=== PATIENT | male | born 1945 | race Caucasian/White ===

== ENCOUNTER 2016-11-30 17:06 | Observation (INO) | payer OTHER, MEDICARE ==
[~2016-11-30] VITALS: Ht 182.9 cm; Wt 97.5 kg
[~2016-11-30 17:06] MED LIST: INDOMETHACIN50 MG PO
[2016-11-30 17:33] LABS: ABSOLUTE BASOPHIL COUNT 0 /CUMM (0.0-0.2); ABSOLUTE EOSINOPHIL COUNT 0.3 /CUMM (0.0-0.7); ABSOLUTE GRANULOCYTE CT 7.6 /CUMM (1.4-6.5); ABSOLUTE LYMPH COUNT 1.1 /CUMM (1.2-3.4); ABSOLUTE MONOCYTE COUNT 0.6 /CUMM (0.10-0.60); BASOPHIL % 0.5 % (0.0-2.0); EOSINOPHIL % 2.8 % (0-5); HEMATOCRIT 45.8 % (42-52); MEAN CORPUSCULAR HGB 31.3 PG (27.0-31.0); MEAN CORPUSCULAR HGB CONC 33.1 G/DL (33.0-37.0); MEAN CORPUSCULAR VOLUME 94.5 FL (80.0-94.0); MEAN PLATELET VOLUME 8.6 FL (7.4-10.4); PLATELET COUNT 212 /CUMM (130-400); RBC DISTRIBUTION WIDTH 12.8 % (11.5-14.5); RED BLOOD CELL CT 4.85 /CUMM (4.70-6.10); WHITE BLOOD CELL COUNT 9.6 /CUMM (4.8-10.8)
--- NOTE | 2016-11-30 17:42 | ED NEURO DEFICIT/STROKE ---
History of Present Illness General Chief Complaint: General Adult Stated Complaint: PT VISION BLURR, AND TALKING NO SENSE Source: patient, family, old records Exam Limitations: no limitations Vital Signs & Intake/Output Vital Signs & Intake/Output Vital Signs Date Time Temp Pulse Resp B/P B/P Pulse O2 O2 Flow FiO2 Mean Ox Delivery Rate 11/30 1818 164/74 11/30 181 Room Air 11/30 1720 97.5 69 18 196/95 100 Room Air Allergies Coded Allergies: NO KNOWN ALLERGIES (01/11/14) Reconcile Medications Indomethacin 50 MG CAPSULE 1 CAP PO TID PRN GOUT PAIN with food Triage Note: C/O HEADACHE SINCE THIS AM, WITH VISION DIFFICULTIES. PER , PT HAD GARBLED SPEECH TODAY AFTER LUNCH. TOOK BABY ASA AT 1415. INDOCIN 2 DOSES. DENIES WEAKNESS, NUMBNESS OR TINGLING. Triage Nurses Notes Reviewed? yes Onset: Abrupt Duration: hour(s): (4), better, resolved prior to arrival Timing: single episode today Severity: mild, moderate Vision Problem? No Glaucoma? No Impaired Ability: difficult to speak HPI: 71-year-old male presents to the ER for evaluation with history of hypertension and high cholesterol and gout with family who states that around 1:00 this afternoon he developed expressive aphasia, blurry vision and the patient stating that he felt like "boggy". Patient's states that he was not making any sense there is no facial droop arm or leg weakness. She attempted to bring into the ER at that time however he went upstairs and took a nap. When he awoke the symptoms were better however she states that he was still acting funny and he is complaining of a generalized 5 out of 10 nonradiating headache. There's been no recent fall or trauma. He took a baby aspirin prior to arrival. His states that he "acts stupid" when he takes indomethacin however he's never had these speech difficulties before her symptoms. The patient does drink alcohol ever denies use in the past 2 days no other drug use. He denies vision changes or any other complaints at this time (BOGDAN PETERS,SAMINA) Past History Travel History Traveled to [place] past 21 day No Medical History Any Pertinent Medical History? see below for history Cardiovascular: hypertension, hyperlipidemia Surgical History Surgical History: non-contributory Psychosocial History What is your primary language Bulgarian Tobacco Use: Quit >30 days ago ETOH Use: occasional use Family History Hx Contributory? No (SAMINA HOOKS) Review of Systems Review of Systems Constitutional: Reports: see HPI. All Other Systems: Reviewed and Negative Comments Review of systems: See HPI, All other systems negative. Constitutional, no chills no fever, no malaise HEENT: No visual changes no sore throat no congestion Cardiovascular: No chest pain , no palpitation Skin: no rashes, no change in skin Respiratory: No dyspnea no cough no sputum GI: No nausea no vomiting, no diarrhea, : No dysuria Muscle skeletal: No joint pain, no joint swelling, no back pain, no neck pain, Neurologic: No numbness confusion, headache Psych: No stress no depression,. Heme/endocrine: No bruising no bleeding Immunology: No lymphadenopathy (SAMINA HOOKS) Physical Exam Physical Exam General Appearance: well developed/nourished, no apparent distress, alert, awake Cranial Nerves: normal hearing, normal speech Comments: Well-developed well-nourished person in no acute distress HEENT: Normal EENT exam; PERRL, EOMI, no nystagmus. HEAD is atraumatic. moist mucous membranes. Neck: Supple,, normal range of motion without pain or tenderness Back: Nontender, no CVA tenderness. Full range of motion Cardiovascular: Regular rate and rhythms no murmurs rubs Respiratory: Chest nontender.There were no bony deformities, no asymmetry. No respiratory distress. Patient speaking in full complete sentences. Breath sounds clear to auscultation bilaterally: NO W/R/R Abdomen: Soft, nontender nondistended, no appreciable organomegaly. Normal bowel sounds. No rebound/guarding, Extremity: No edema, full range of motion of extremities, normal and equal pulses bilaterally, 5 out of 5 strength noted to bilateral upper and lower extremities Neuro: Alert oriented x3, motor sensory normal, cranial nerves II through XII grossly intact. There were no obvious focal neurologic abnormalities. Skin: No appreciable rash on exposed skin, skin is warm and dry. Psych: Mood and affect is normal, memory and judgment is normal. Core Measures CVA/TIA Diagnosis: Yes NIH Stroke Scale: Total 0 Symptom Start Date: 11/30/16 Symptom Start Time: 1330 Severe Sepsis Present: No Septic Shock Present: No Bedside Dysphagia Screen Bedside Swallow Eval Done: Yes Result of Evaluation: Pass (SAMINA HOOKS) Progress Differential Diagnosis: electrolyte imbalance, encephalitis, hypoglycemia, intracranial Hem., intracranial mass/tumor, stroke, subarachnoid Hem., vertebrobasilar insuff. Plan of Care: Orders Procedure Date/time Status Heart Healthy Diet 12/01 B Active Vital Signs 11/30 1957 Active Code Status 11/30 1957 Active Patient Data 11/[address] in observation 12/01 1939 Active Intake & Output 11/30 1820 Active URINE DRUG SCREEN FOR ER ONLY 11/30 1816 Complete URINALYSIS 11/30 175 Complete Add-on Test (ER Only) 11/30 175 Active Telemetry/Manager Meat 11/30 175 Active NIH Stroke Scale 11/30 175 Active FingerStick- Glucose 11/30 175 Active ETHANOL 11/30 1725 Complete TROPONIN LEVEL 11/30 172 Complete COMPREHENSIVE METABOLIC PANEL 11/30 172 Complete CBC WITHOUT DIFFERENTIAL 11/30 172 Complete EKG 11/30 172 Active Laboratory Tests 11/30/16 1835: Urine Opiates Screen 126.00, Methadone Screen < 40, Barbiturate Screen < 60, Ur Phencyclidine Scrn < 6.00, Amphetamines Screen < 100, U Benzodiazepines Scrn < 85, Urine Cocaine Screen < 50, Urine Cannabis Screen < 5.00, Urine Color YEL, Urine Clarity CLEAR, Urine pH 7.0, Ur Specific [place] <= 1.005, Urine Protein NEG, Urine Ketones NEG, Urine Nitrite NEG, Urine Bilirubin NEG, Urine Urobilinogen 0.2, Ur Leukocyte Esterase NEG, Ur Microscopic EXAM NOT REQUIRED, Urine Hemoglobin NEG, Urine Glucose NEG 11/30/16 1725: Anion Gap 13, Estimated GFR > 60, BUN/Creatinine Ratio 16.4, Glucose 124 H, Calcium 9.9, Total Bilirubin 0.8, AST 41, ALT 50, Alkaline Phosphatase 64, Troponin I < 0.01, Total Protein 7.5, Albumin 4.5, Globulin 3.0, Albumin/ Globulin Ratio 1.5, CBC w Diff NO MAN DIFF REQ, RBC 4.85, MCV 94.5 H, MCH 31.3 H, RDW 12.8, MPV 8.6, Gran % 79.0 H, Lymphocytes % 11.8 L, Monocytes % 5.9, Eosinophils % 2.8, Basophils % 0.5, Absolute Granulocytes 7.6 H, Absolute Lymphocytes 1.1 L, Absolute Monocytes 0.6, Absolute Eosinophils 0.3, Absolute Basophils 0, PUBS MCHC 33.1, Serum Alcohol < 10.0 Diagnostic Imaging: Viewed by Me: CT Scan. Discussed w/RAD: CT Scan. Radiology Impression: PATIENT: CLIFFORD WOO PRESENT AGE: 71 PATIENT ACCOUNT NO: [id number] : 46 LOCATION: [facility] ORDERING PHYSICIAN: SAMINA PETERS SERVICE DATE: 11/30/16 EXAM TYPE: CAT - CT HEAD WO IV CONTRAST EXAMINATION: CT HEAD WITHOUT CONTRAST CLINICAL INFORMATION: Headache. Vision changes. COMPARISON: CT head 05/08/2009 TECHNIQUE: Contiguous axial imaging was performed from the skull base to vertex without intravenous administration of contrast. DLP: 600.71 mGy-cm FINDINGS: Stable small lacunar infarct in the head of the caudate on the right unchanged since CAT scan 05/08/2009. There is no evidence of acute intracranial hemorrhage or acute territorial infarction. No abnormal mass effect or midline shift is seen. Swain to white matter differentiation is well preserved. No extra-axial fluid collections are identified. There is atrophy with prominence of the ventricles and the sulci and hypodensity of the periventricular white matter due to chronic small vessel ischemic disease. There is vascular calcifications of the internal carotid arteries bilaterally. The osseous structures and soft tissues are normal. The mastoid air cells and visualized portions of the paranasal sinuses are well aerated. IMPRESSION: No acute intracranial pathology. DICTATED BY: JAYASHREE TIERNEY MD DATE/TIME DICTATED:11/30/161757 COPY DIRECTOR:ELOY DATE/TIME TRANSCRIBED:11/30/161757 CONFIDENTIAL, DO NOT COPY WITHOUT APPROPRIATE AUTHORIZATION. <Electronically signed in Other Vendor System> SIGNED BY: JAYASHREE TIERNEY MD 11/30/16 034 Initial ED EKG: normal intervals, normal p-waves, normal QRS complex, normal sinus rhythm (70) Rhythm Strip: normal sinus rhythm (SAMINA HOOKS) Departure Departure Time of Disposition: 1936 Disposition: STILL A PATIENT Condition: Stable Clinical Impression Primary Impression: TIA (transient ischemic attack) Referrals: CATRACHITO MEJIA,BRIANNA Healy (PCP/Family) Departure Forms: Customer Survey General Discharge Information Observation Note Spoke With: GUERA LOPEZ MD Physician Advisor Notified: BREANA MEJIA,AMBER [address]ney Place Patient In: Non-ED OBS Care Area Rationale for Observation: My rational for observation is as follows neuro checks telemetry monitoring, neurology consult premature discharge and medically harmful (BOGDAN PETERS,SAMINA) PA/MIX HOUSE TENDER Co-Sign Statement Statement: ED Attending supervision documentation- [X] I saw and evaluated the patient. I have also reviewed all the pertinent lab results and diagnostic results. I agree with the findings and the plan of care as documented in the PA's/MIX HOUSE TENDER's documentation. [X] I have reviewed the ED Record and agree with the PA's/MIX HOUSE TENDER's documentation. [] Additions or exceptions (if any) to the PAs/MIX HOUSE TENDER's note and plan are summarized below: [] (LITO MEJIA,CANDELARIO)
--- NOTE | 2016-11-30 18:03 | CT SCAN REPORT ---
EXAMINATION: CT HEAD WITHOUT CONTRAST CLINICAL INFORMATION: Headache. Vision changes. COMPARISON: CT head 05/08/2009 TECHNIQUE: Contiguous axial imaging was performed from the skull base to vertex without intravenous administration of contrast. DLP: 600.71 mGy-cm FINDINGS: Stable small lacunar infarct in the head of the caudate on the right unchanged since CAT scan 05/08/2009. There is no evidence of acute intracranial hemorrhage or acute territorial infarction. No abnormal mass effect or midline shift is seen. Swain to white matter differentiation is well preserved. No extra-axial fluid collections are identified. There is atrophy with prominence of the ventricles and the sulci and hypodensity of the periventricular white matter due to chronic small vessel ischemic disease. There is vascular calcifications of the internal carotid arteries bilaterally. The osseous structures and soft tissues are normal. The mastoid air cells and visualized portions of the paranasal sinuses are well aerated. IMPRESSION: No acute intracranial pathology.
--- NOTE | 2016-11-30 19:57 | History & Physical ---
NAYA MEJIA,[facility] 11/30/161956: General Information and [facility] MD Statement: I have seen and personally examined CLIFFORD WOO and documented this H&P. The patient is a 71 year old M who presented with a patient stated chief complaint of [headache and expressive aphasia]. Source of Information: patient, family Exam Limitations: no limitations History of Present Illness: Mr. Woo is 71 year old male with past medical history significant for hypertension, hyperlipidemia, migraine, gout, carotid artery disease status post CABG (3 vessels), left hearing loss s/p left ear infection and ENT procedure presented to ED with chief complaint of sudden onset of visual changes, headache , expressive aphasia for one day. Patient reported what he was with his family watching TV at around 1:30 PM when he started to have sudden onset of "funny/pressure sensation" headache-like pain , expressive aphasia (couldn't express himself with right words) and visual changes (visual field black spots). Patient took aspirin and multivitamin pill and went to sleep for 1 hour, after he woke up the speech difficulty resolved, visual changes and headache continue to present. His at bedside reported that after the nap she and her daughter had a conversation with him and he couldn't comprehend appropriately and they decided to bring him to ED for evaluation. Review of systems negative for weakness, numbness, fatigue, palpitation, chest pain, shortness of breath, sweating, nausea or vomiting. Patient reported similar episode one year ago when he was working outside in warm weather, he developed expressive aphasia similar to today's symptom and was attributed to dehydration. At that time patient took a shower and went to sleep for 1 hour, after the nap symptoms resolved and didn't seek any medical attention at that time. Patient is an ex-smoker quit 40 years ago, drinks alcohol occasionally but in large amount, last drink was last Monday where he consumed 5-6 beers, he mainly drinks when he works outside to help alleviating his back, knees, muscle pain. Denied ilict drug. Allergies/Medications Allergies: Coded Allergies: NO KNOWN ALLERGIES (01/11/14) Past History Travel History Traveled to [place] past 21 day No Medical History Cardiovascular: hypertension, hyperlipidemia Surgical History Surgical History: CABG Past Family/Social History Psychosocial History Where do you live? Home Who Do You Live With? spouse Smoking Status: Former Smoker ETOH Use: occasional use Illicit Drug Use: denies illicit drug use Review of Systems Review of Systems Constitutional: Reports: see HPI. Denies: fever, malaise. Cardiovascular: Denies: chest pain, orthopena, palpitations. Respiratory: Denies: cough, short of breath. GI: Denies: abdominal pain, constipation, diarrhea, nausea, vomiting. Genitourinary: Denies: dysuria, frequency, hematuria. Musculoskeletal: Denies: joint pain. Skin: Denies: change in skin color, change in hair/nails. Exam & Diagnostic Data Last 24 Hrs of Vital Signs/I&O Vital Signs Date Time Temp Pulse Resp B/P B/P Pulse O2 O2 Flow FiO2 Mean Ox Delivery Rate 12/01 0100 55 158/76 12/01 0024 97.8 55 20 182/76 96 Room Air 11/30 2301 166/78 11/30 2146 56 16 167/66 97 Room Air 11/30 2125 97.8 58 16 180/80 97 Room Air 11/30 1818 164/74 11/30 1812 Room Air 11/30 1720 97.5 69 18 196/95 100 Room Air Intake & Output 12/01 0800 12/01 0000 11/30 1600 Intake Total 1000 Output Total 1525 Balance -525 Intake, IV 1000 Output, Urine 1525 Patient 97.522 kg Weight Weight Reported by Patient Measurement Method Physical Exam General Appearance Alert, Oriented X3, Cooperative, No Acute Distress Skin No Rashes, No Breakdown, No Significant Lesion Skin Temp/Moisture Exam: Warm/Dry Sepsis Skin Exam (color): Normal for Ethnicity HEENT Atraumatic, PERRLA, EOMI, Mucous Membr. moist/pink Neck Supple, No JVD Lymphatic no cervical lymphadenopathy Cardiovascular Regular Rate, Normal S1, Normal S2, No Murmurs Lungs Clear to Auscultation, Normal Air Movement Abdomen Normal Bowel Sounds, Soft, No Tenderness Neurological Normal Gait, Normal Speech, Strength at 5/5 X4 Ext, Normal Tone, Sensation Intact, Cranial Nerves 3-12 NL, Reflexes 2+ Extremities No Clubbing, No Cyanosis, No Edema, Normal Pulses Vascular Normal Pulses Assessment/Plan Assessment: Mr. Woo is 71 year old male with past medical history significant for hypertension, hyperlipidemia, migraine, gout, carotid artery disease status post CABG (3 vessels) presented to ED with chief complaint of sudden onset of visual changes, headache, expressive aphasia for one day. On admission Vital signs temperature 97.5, pulse 69, blood pressure 196/95, respiratory rate 18 on room air saturation 100% Labs WBC 9.6, H&H 15.2/45.8, platelet 212, sodium 135, potassium 4.6, chloride 92, bicarbonate 23, BUN/creatinine 18/1.1, AST within normal, urine negative toxicology, clean UA Imaging CT head FINDINGS: Stable small lacunar infarct in the head of the caudate on the right unchanged since CAT scan 05/08/2009. There is no evidence of acute intracranial hemorrhage or acute territorial infarction. No abnormal mass effect or midline shift is seen. Swain to white matter differentiation is well preserved. No extra-axial fluid collections are identified. There is atrophy with prominence of the ventricles and the sulci and hypodensity of the periventricular white matter due to chronic small vessel ischemic disease. There is vascular calcifications of the internal carotid arteries bilaterally. The osseous structures and soft tissues are normal. The mastoid air cells and visualized portions of the paranasal sinuses are well aerated. IMPRESSION: No acute intracranial pathology. Problem list #TIA #Hypertension #Hyperlipidemia #TIA -Patient presented with history of sudden onset headache, expressive aphasia, visual changes. Past medical history of similar episode 1 year ago that resolved without medical intervention -Will observe patient on telemetry for 24 hours -building admin for any arrhythmia -Carotid ultrasound to rule out atherosclerotic plague and stenosis -Troponin and EKG serial -Neuro check every 4 -Lipid profile and hemoglobin A1c -TSH, free T4 -Vitamin B12 -Neuro consultation -Continue aspirin and high-dose statin (patient reported history of muscle pain related to Cozaar use) #Hypertension -Continue lisinopril 5 mg daily -Continue atenolol 25 mg daily -Wicho Rosa MD is the grounds person, last follow-up was in July 2016, echo was obtained at that time Diet nothing by mouth waiting for swallow evaluation DVT prophylaxis Lovenox Code full Consultation cardiology and neurology As Ranked By This Provider Problem List: 1. TIA (transient ischemic attack) 2. Acute gouty arthritis Core Measures/Miscellaneous Acute Coronary Syndrome ACS Diagnosis: No Cerebrovascular Accident CVA/TIA Diagnosis: Yes Symptom Start Date: 11/30/16 Symptom Start Time: 1330 Bedside Swallow Eval Done: Yes Result of Evaluation: Pass Congestive Heart Failure CHF Diagnosis: No Venous Thromboembolism VTE Risk Factors: Age > 40 [facility] prophylaxis d/t: No contraindications No VTE Pharm Prophylaxis d/t: No contraindications VTE Diagnosis: No VTE Type: NONE VTE Confirmed by (Test): NONE Severe Sepsis Severe Sepsis Present: No Septic Shock Septic Shock Present: No Miscellaneous Documentation Attending Case Discussed With: JESSICA MEJIA,GUERA Primary Care Physician: BRIANNA WINSTON MD Patient sees these Specialists Cardiology, rheumatology, ENT Level of Patient Care: Telemetry SUNNY MELENDEZ 11/30/16 2152: General Information and HPI Allergies/Medications Home Med list Atenolol 25 MG TABLET 1 TAB PO DAILY HTN (Reported) Indomethacin 50 MG CAPSULE 50 MG PO BIDP PRN GOUT PAIN (Reported) Lisinopril 5 MG TABLET 1 TAB PO QAM HTN (Reported) Pantoprazole Sodium 40 MG TABLET.DR 1 TAB PO QAM GERD (Reported) Prednisone 10 MG TABLET 5 MG PO QAM U (Reported) Resident Review Statement Resident Statement: examined this patient, discussed with intern architect, agreed with intern architect Other Findings: Mr. Woo is a 71 yo man with PMHx. of HTN, HLD, GOUT, Migraine, NM s/p CABG at 2011, multiple surgeries to neck, back, rh. knee and B/L eye cataract removal presented to ED with a c/o of headache, difficulty speech and vision changes. Patient report that today at afternoon he thought he had migraine because he felt his head is funny, whith some wavy vision changes. he also also having speech changes in the form that he knowes what he want to say but it wasn't coming out ok, he went to sleep and when he woke up he felt that his speech was totally fine, but still has the headach and spotty vision, his family noticed that he is confused, not interacting well with them. Patient had similar episode about 1 year ago at that time it was attributed to dehydration but he never seek medical advise. Patient last seen by his grounds person at july last year, at the time he had an echo done. At ED his vitals was stable except that his BP:196/[address]-Heas: unremarkable Assessment: #TIA #Hx. of heart attack S/P tripple bypass at 2011 #Hx. of HTN, HLD #Hx. of Gout #Hx. of Migraine Plan: -Will admitt to telemetry floor -Will start him on dual antiplatelate therapy, plavix and aspirin -Nigel start him on high dose statin ...> 80mg lipitor -Lipid panel at am -Case was discussed with oncall neurologist , who recommend to obtain MRI , and ESR. Patient to be seen by tomorrow -Will place a cardiology consult with Dr. Rosa -Will order another set of troponin and EKG -Echocardiogram -US was ordered, will f/u the result -Case was discussed with at this point there is no need to allow permissive action of BP as it's TIA most likely, not a stroke, as his BP was high, HOWEVER, his BP improved to 158/72, and pulse of 55, so we held BP medication. Will monitor -Will continue home meds except indomethicine and crestor -Heart healthy diet -DVT ppx: Lovenox -Full code JESSICA MEJIA, [facility] 12/01/16 0241: Attending MD Review Statement Attending Statement Attending MD Statement: examined this patient, discuss w/resident/PA/ROD BENDING MACHINE OPERATOR, agreed w/resident/PA/ROD BENDING MACHINE OPERATOR Attending Assessment/Plan: 71 yo M ex-smoker, with h/o HTN, CAD s/p CABG, HLD, GERD, gout, migraine, CRAIG, is here with sudden onset of frontal headache followed by vision changes (black spots/ blotchy), garbled speech/ expressive aphasia and lighteadedness (feeling boggy). This episode occurred around 1.30 pm, he took an aspirin and went to nap and thinks that the episode resolved in 20 minutes. However, family noted that even after his nap, patient was acting funny and so brought him to ER. No facial droop, slurring of speech or paresis. Patient reports, he is back to baseline and feels well. Patient also states, he probably was dehydrated or it was migraine, as a similar episode occurred 1 year ago. He also has c/o bodyaches, muscle aches so took Indomethacin. Patient follows with Dr. Rosa and gets carotid dopplers every 5 yrs, last in 2011 showed mild to moderate plaque. Of note, he is on prednisone (prescribed by Dr. Winston) but he does not know why. He thinks he has been on prednisone for 2 yrs. He drinks alcohol though not on a daily basis. Vitals stable, BP 158/76. Neuro exam: no focal deficits. Labs: glucose 124, trop neg. UA/ Utox neg. CT head: no acute changes. Small lacunar infarct (seen in 2008). EKG: SR. Nuclear stress test (2010): EF 39% with global hypokinesis. Old infarct with periinfarct ischemia. 1. TIA. 23 Obs on Tele, neurochecks, monitor for arrhythmias, rule out ACS, obtain carotid ultrasound, Echo, MRI, Neuro and Cardio consult in AM. Check lipid panel, HbA1c and thyroid functions. Continue aspirin, add plavix. Initiate high dose statin. Patient has a h/o abnormal LFTs with lipitor and reports muscle aches with rosuvastatin. Will initiate Simvastatin 80 mg daily. Resume his BP meds lisinopril and atenolol from AM. NPO, swallow eval, PT eval. 2. Gout/ arthritis. Patient reports being on prednisone. Please confirm this with his PCP in AM and resume accordingly. DVT ppx Lovenox. Full code.
[2016-11-30] MEDS ORDERED: ATENOLOL25 M1 PO (20:33)
[2016-11-30] MEDS ORDERED: PANTOPRAZOLE SO40 M1 PO (20:33)
[2016-11-30] MEDS ORDERED: LISINOPRIL5 M1 PO (20:33)
[2016-11-30] MEDS ORDERED: PREDNISONE10 M2 PO (20:33)
[2016-11-30] MEDS ORDERED: INDOMETHACIN50 M1 PO (20:34)
[2016-12-01 00:24] VITALS: BP 182/76
[2016-12-01 01:00] VITALS: BP 158/76
--- NOTE | 2016-12-01 07:37 | PN- Housestaff ---
LEMUEL MARROQUIN 12/01/16 0737: Subjective Follow-up For: - TIA - HTN Complaints: no complaints Tele-Events Since Last Visit: Normal sinus rhythm, heart rate 55-59, no overnight events were noted. Subjective: The patient was comfortable this morning. Did not have any complaints. Vitals were stable overnight. Had one time recording of elevated blood pressure 182/76 , which normalized to 158/76. Oxygen saturation 96% on room air. Did not have any chest pain, shortness of breath, weakness, tingling numbness sensation bilateral lower extremities. Did not have any aphasia. Spoke to his primary care provider, and he was of the opinion that prednisone could be discontinued, as the patient was not taking medication on a regular basis. As per the PCP, he takes prednisone for osteoarthritis or gout. After speaking to Dr. Rosa, medication list was adjusted. Restarted the patient on Lipitor, as history of medication tolerance to lipid lowering drugs is unclear at this time. Plan was to watch LFTs closely. Review of Systems Constitutional: Reports: see HPI. Objective Last 24 Hrs of Vital Signs/I&O Vital Signs Date Time Temp Pulse Resp B/P B/P Pulse O2 O2 Flow FiO2 Mean Ox Delivery Rate 12/01 0100 55 158/76 12/01 0024 97.8 55 20 182/76 96 Room Air 11/30 2301 166/78 11/30 2146 56 16 167/66 97 Room Air 11/30 2125 97.8 58 16 180/80 97 Room Air 11/30 1818 164/74 11/30 1812 Room Air 11/30 1720 97.5 69 18 196/95 100 Room Air Intake & Output 12/01 0800 12/01 0000 11/30 1600 Intake Total 350 1000 Output Total 450 1525 Balance -100 -525 Intake, IV 0 1000 Intake, Oral 350 Number 0 Bowel Movements Output, Urine 450 1525 Patient 215 lb Weight Weight Reported by Patient Measurement Method Physical Exam General Appearance: No Acute Distress Other Physical Findings: General Exam: AAOx3, No acute distress, Skin: No rashes, no breakdown HEENT: PERRLA, EOMI Neck: Supple, No JVD No cervical lymphadenopathy CVS: Reg Rate, Normal S1,S2, No MGR Resp: Normal air entry, no ronchi/rales Abdomen: Soft, No tenderness, Normal Bowel Sounds Neuro: Normal Speech, Strength 5/5 b/l x 4 extremities, Sensation intact, CN III -XII NL, Reflexes 2+ Extremities: No cyanosis, pedal edema Current Medications: Current Medications Sig/Aura Start time Last Medication Dose Route Stop Time Status Admin Acetaminophen 650 MG Q6P PRN 12/01 0215 AC PO Adenosine 0 .STK-MED ONE 11/30 1926 DC IV Aspirin 81 MG DAILY 12/01 1239 AC 12/01 PO 1315 Aspirin 0 .STK-MED ONE 11/30 1914 DC PO Aspirin 325 MG ONCE ONE 11/30 1900 DC 11/30 PO 11/30 190 2019 Atenolol 25 MG DAILY 12/01 1000 AC 12/01 PO 0953 Atenolol 25 MG ONCE ONE 12/01 0045 CAN PO 12/01 0046 Atorvastatin Calcium 40 MG 1700 12/01 1700 DC PO Atorvastatin Calcium 80 MG 1700 12/01 1700 DC PO Atorvastatin Calcium 40 MG 1700 12/01 1700 AC 12/01 PO 1614 Atorvastatin Calcium 40 MG 1700 11/30 2230 DC 11/30 PO 2315 Clopidogrel Bisulfate 75 MG DAILY 12/01 1000 AC 12/01 PO 0953 Clopidogrel Bisulfate 75 MG ONCE ONE 11/30 2230 DC 11/30 PO 11/30 2231 2315 Enoxaparin Sodium 40 MG DAILY 12/01 1000 AC 12/01 SC 0951 Oxycodone/ 2 TAB Q12P PRN 12/01 0215 AC 12/01 Acetaminophen PO 1142 Patient Medication 1 ED .STK-MED ONE 12/01 1418 DC Teaching ED 12/01 1419 Prednisone 5 MG QAM 12/01 1000 AC 12/01 PO 0952 Simvastatin 80 MG 1700 12/01 1700 CAN PO Sodium Chloride 1,000 ML BOLUS ONE 11/30 1800 DC 11/30 IV 11/30 1859 1810 Last 24 Hrs of Lab/Abdias Results Last 24 Hrs of Labs/Mics: Laboratory Tests 12/01/16 0635: Anion Gap 10, Estimated GFR > 60, BUN/Creatinine Ratio 13.0, Triglycerides 182 H, Cholesterol 198, LDL Cholesterol, Calc 109, HDL Cholesterol 53, Cholesterol/ HDL Ratio 4, CBC w Diff NO MAN DIFF REQ, RBC 4.46 L, MCV 95.1 H, MCH 31.5 H, RDW 13.4, MPV 9.2, Gran % 58.6, Lymphocytes % 26.2, Monocytes % 9.1, Eosinophils % 5.4 H, Basophils % 0.7, Absolute Granulocytes 5.1, Absolute Lymphocytes 2.3, Absolute Monocytes 0.8 H, Absolute Eosinophils 0.5, Absolute Basophils 0.1, PUBS MCHC 33.1 12/01/16 0000: Troponin I 0.01 11/30/16 1835: Urine Opiates Screen 126.00, Methadone Screen < 40, Barbiturate Screen < 60, Ur Phencyclidine Scrn < 6.00, Amphetamines Screen < 100, U Benzodiazepines Scrn < 85, Urine Cocaine Screen < 50, Urine Cannabis Screen < 5.00, Urine Color YEL, Urine Clarity CLEAR, Urine pH 7.0, Ur Specific [place] <= 1.005, Urine Protein NEG, Urine Ketones NEG, Urine Nitrite NEG, Urine Bilirubin NEG, Urine Urobilinogen 0.2, Ur Leukocyte Esterase NEG, Ur Microscopic EXAM NOT REQUIRED, Urine Hemoglobin NEG, Urine Glucose NEG Assessment/Plan Assessment: Mr. Martinez is a 79-year-old man who has a past history of hypertension, coronary artery disease status post CABG, hyperlipidemia, gout is being evaluated for headache and expressive aphasia 1 day. At the time of admission, vitals-temperature 97.5, pulse rate 69, respiratory rate 18, blood pressure 196/95 (improved to 144/72), 100% on room air. EKG findings indicated normal sinus rhythm with no ST-T wave changes. Nuclear stress test was done in 2010 showed ejection fraction of 39% with global hypokinesis. Lab findings indicated-hemoglobin 15.2, WBC 9.6, ESR 9, sodium 135 , potassium 4.6, normal renal function BUN 18, serum creatinine 1.1, normal liver function, serial cardiac enzymes negative, lipid panel-triglycerides 182, cholesterol 198, LDL 109, HDL 53, TSH 0.9. Radiological findings-CT head without IV contrast revealed no acute intracranial pathology. MRI head without gadolinium revealed no acute intracranial findings with no acute infarcts noted. However chronic lacunar infarct within the right caudate was seen. Also mild to moderate chronic microangiopathy was also reported. Differential diagnosis: #1 transient ischemic attack #2 Vertigo Below is problem list and plan: #1 aphasia-improved remarkably. Currently does not have any symptoms. To be placed on observation in telemetry. Neuro checks to be done every 4 hours. Patient previously on one of to antiplatelet medication in the past, and was started on aspirin and Plavix. Discussed with the anodizer. Intolerance to statin is noted, however clear history was not available. Also, a trial of statin free period after intolerance and follow-up with LFTs was not done in the past. Restarted Lipitor after discussing with the anodizer. Plan to monitor LFTs closely. Notified the patient off symptoms, and to let the primary care no of the symptoms immediately. Echocardiogram to be done. Lisinopril is shown to improve mortality in patients with TIA. Restart lisinopril. #2 pain management-discontinued prednisone after discussing with the primary care provider. Encourage the patient to talk to the PCP immediately. Problem List: 1. TIA (transient ischemic attack) 2. Acute gouty arthritis Pain Ratin Pain Location: none Pain Goal: Pain 4 or less Pain Plan: tylenol Tomorrow's Labs & Rationales: none. pt to be discharged. MARY BETH CHAVEZ MD 12/01/16 1242: Attending MD Review Statement Attending Statement Attending MD Statement: examined this patient, discuss w/resident/PA/FITTING ROOM CHECKER, agreed w/resident/PA/FITTING ROOM CHECKER, reviewed EMR data (avail) Attending Assessment/Plan: 71M PMH HTN, CAD s/p CABG, HLD, GERD, gout, migraine admitted for aphasia and slurred speech lasting 1-2 hours in the setting of TIA. Symptoms resolved, patient's speech is back to baseline but he still feels a bit "foggy". Neurological exam grossly normal. No telemetry events. 1. TIA 2. Aphasia 3. History of CAD Plan - Observation in telemetry - Neurology consult - Continue ASA, Plavix (added yesterday) - Patient has possible reactions to statins but it is unclear at this time. Will start trial of Atorvastatin 40mg and recheck LFTs in 1 week. Will stop Simvastatin 80mg as there is high correlation to myalgia at that dosage, and patient has a history of myalgia with Rosuvastatin - Carotid doppler normal - Follow up MRI head and echocardiogram - Follow cardiology recommendations - Continue home medications - Anticipated discharge later this afternoon after MRI, echocardiogram, and neurology recommendations
--- NOTE | 2016-12-01 08:04 | ULTRASOUND REPORT ---
EXAMINATION: DUPLEX BILATERAL CAROTID ULTRASOUND CLINICAL INFORMATION: Aphasia. Visual changes.. COMPARISON: Carotid ultrasound 09/16/2011 TECHNIQUE: Real-time ultrasound and Doppler techniques (integrating B-mode 2D vascular images, Doppler spectral analysis and color flow Doppler imaging) were utilized to interrogate the extracranial carotid and vertebral arteries bilaterally. The degree of stenosis determined by criteria similar to NASCET. FINDINGS: Right side: 1. Moderate amount of plaque is seen in the ECA/ICA region. 2. The common carotid artery velocity is 77 cm/s. 3. The internal carotid artery velocities are 86 cm/s systolic and 15 cm/s diastolic. 4. The external carotid artery velocity is 129 cm/s. Left side: 1. Mild to moderate amount of plaque is seen in the ECA/ICA region. 2. The common carotid artery velocity is 141 cm/s. 3. The internal carotid artery velocities are 92 cm/s systolic and 11 cm/s diastolic. 4. The external carotid artery velocity is 171 cm/s. ADDITIONAL FINDINGS: 1. The vertebral arteries show antegrade flow. IMPRESSION: 1. RIGHT: Minimal, nonhemodynamically significant stenosis of the proximal right internal carotid artery corresponding to a 0-49% stenosis by velocity criteria. 2. LEFT: Minimal, nonhemodynamically significant stenosis of the proximal left internal carotid artery corresponding to a 0-49% stenosis by velocity criteria. 3. No evidence for hemodynamically significant stenosis in the external carotid arteries.
[2016-12-01 08:36] VITALS: BP 144/72
[2016-12-01 08:51] LABS: ABSOLUTE BASOPHIL COUNT 0.1 /CUMM (0.0-0.2); ABSOLUTE EOSINOPHIL COUNT 0.5 /CUMM (0.0-0.7); ABSOLUTE GRANULOCYTE CT 5.1 /CUMM (1.4-6.5); ABSOLUTE LYMPH COUNT 2.3 /CUMM (1.2-3.4); ABSOLUTE MONOCYTE COUNT 0.8 /CUMM (0.10-0.60); BASOPHIL % 0.7 % (0.0-2.0); EOSINOPHIL % 5.4 % (0-5); GRANULOCYTE % 58.6 % (42.2-75.2); HEMATOCRIT 42.4 % (42-52); MEAN CORPUSCULAR HGB 31.5 PG (27.0-31.0); MEAN CORPUSCULAR HGB CONC 33.1 G/DL (33.0-37.0); MEAN CORPUSCULAR VOLUME 95.1 FL (80.0-94.0); MEAN PLATELET VOLUME 9.2 FL (7.4-10.4); PLATELET COUNT 187 /CUMM (130-400); RBC DISTRIBUTION WIDTH 13.4 % (11.5-14.5); RED BLOOD CELL CT 4.46 /CUMM (4.70-6.10); WHITE BLOOD CELL COUNT 8.6 /CUMM (4.8-10.8)
--- NOTE | 2016-12-01 13:40 | MRI REPORT ---
MR BRAIN WITHOUT CONTRAST CLINICAL INFORMATION: Expressive aphasia and vision changes. COMPARISON: Head CT 11/30/2016. TECHNIQUE: MRI of the brain without contrast was obtained using routine sequences. FINDINGS: There is no hydrocephalus, extra-axial surface collection, or herniation. There are T2 signal changes throughout the supratentorial white matter that are most suggestive of mild to moderate chronic microangiopathy. Chronic lacunar infarct within the right caudate. The major flow voids at the skull base are preserved. There is no acute infarct on diffusion-weighted imaging. There is no intracranial hemorrhage on the gradient recalled echo acquisition. The midline structures are normal. The cerebellar tonsils are normally positioned. The cerebellum and brainstem are normal. The craniocervical junction is normal. Osseous marrow signal intensity is homogenous. Left-sided mastoidectomy changes are redemonstrated with opacification of the left mastoid bowl. Moderate mucosal thickening within the maxillary sinuses bilaterally. Bilateral lens extractions. The visualized soft tissues are unremarkable. IMPRESSION: - No acute intracranial findings. No acute infarcts. - Mild to moderate chronic microangiopathy. Chronic lacunar infarct within the right caudate.
[2016-12-01] MEDS ORDERED: PLAVIX75 M1 PO (14:21)
[2016-12-01] MEDS ORDERED: ASPIRIN81 M4 PO (14:24)
[2016-12-01] MEDS ORDERED: LIPITOR20 M2 PO (14:24)
[2016-12-01 17:02] VITALS: BP 138/60
--- NOTE | 2016-12-01 20:34 | ECHOCARDIOGRAM REPORT ---
CLIFFORD WOO Age: 71 : 1945 Gender: M Exam Date: 12/01/2016 10:40 Exam Location: 1 [place] Ht (in): 72 Wt (lb): 215 BSA: 2.25 BP: 158 / 76 Ordering Physician: SUNNY BOUCHER MD Referring Physician: SUNNY BOUCHER MD Technologist: Epi Santana [facility] Room Number: 176-1 Indications: STROKE Rhythm: Sinus Technical Quality: Fair FINDINGS Left Ventricle Normal size left ventricle. Normal global left ventricular size, wall thickness, systolic function with no obvious regional wall motion abnormalities. Normal left ventricular ejection fraction estimated at 55-60%. Right Ventricle Normal right ventricular size and function. Right Atrium Normal right atrial size. Left Atrium Mild left atrial dilatation. Mitral Valve Mitral valve thickened. Mild mitral regurgitation. Aortic Valve Trileaflet aortic valve. Diffuse thickening (sclerosis) of the aortic valve cusps without reduced excursion. No aortic stenosis. No aortic regurgitation. Tricuspid Valve Tricuspid valve not well visualized, grossly normal.[id number] tricuspid regurgitation. Right ventricular systolic pressure estimated at 36 mmHg. Pulmonic Valve Pulmonic valve not well visualized, grossly normal. Mild pulmonic regurgitation. Pericardium No pericardial effusion. Great Vessels Normal size aortic root and proximal ascending aorta. CONCLUSIONS 1. Mild to moderate aortic sclerosis is present with no valvular stenosis or insufficiency. 2. Mitral leaflet thickening is present with mild mitral insufficiency and mild left atrial enlargement. 3. There is no pericardial fluid present. 4. The left ventricular chamber size and systolic function are normal. 5. Mild to moderate tricuspid insufficiency is present with mild pulmonic insufficiency and no evidence of pulmonary hypertension. 6. A small interatrial septal aneurysm is present. Color flow imaging suggests the presence of a PFO. Jaky Rosa M.D. (Electronically Signed) Final Date: 01 December 2016 20:33 MEASUREMENTS (Male / Female) Normal Values 2D ECHO LV Diastolic Diameter PLAX 4.9 cm 4.2 - 5.9 / 3.9 - 5.3 cm LV Systolic Diameter PLAX 3.0 cm 2.1 - 4.0 cm LV Fractional Shortening PLAX 38.8 % 25 - 46 % LV Ejection Fraction 2D Teich 69.0 % IVS Diastolic Thickness 0.8 cm LVPW Diastolic Thickness 1.0 cm LV Relative Wall Thickness 0.4 RV Internal Dim ED PLAX 3.0 cm 1.9 - 3.8 cm LVOT Diameter 2.3 cm Aortic Root Diameter 2.7 cm LA Systolic Diameter LX 4.2 cm 3.0 - 4.0 / 2.7 - 3.8 cm LA Volume 37.0 cm 18 - 58 / 22 - 52 cm Ascending Aorta Diameter 3.1 cm DOPPLER AV Peak Velocity 186.0 cm/s AV Peak Gradient 13.8 mmHg AV Mean Velocity 123.0 cm/s AV Mean Gradient 7.0 mmHg AV Velocity Time Integral 41.1 cm LVOT Peak Velocity 85.0 cm/s LVOT Peak Gradient 2.9 mmHg LVOT Mean Velocity 57.9 cm/s LVOT Mean Gradient 2.0 mmHg LVOT Velocity Time Integral 19.3 cm LVOT Stroke Volume 80.2 cm AV Area Cont Eq vti 2.0 cm AV Area Cont Eq pk 1.9 cm MV Peak Velocity 130.3 cm/s MV Peak Gradient 6.8 mmHg MV Mean Velocity 27.8 cm/s MV Mean Gradient 0.8 mmHg Mitral E Point Velocity 87.4 cm/s Mitral A Point Velocity 116.0 cm/s Mitral E to A Ratio 0.8 MV PHT Velocity 100.4 cm/s MV Deceleration [place] 313.5 cm/s MV Pressure Half Time 96.1 ms MV Area PHT 2.3 cm MV Deceleration Time 387.0 ms TR Peak Velocity 277.0 cm/s TR Peak Gradient 30.7 mmHg Right Atrial Pressure 5.0 mmHg Pulmonary Artery Systolic Pressu 35.7 mmHg Right Ventricular Systolic Press 35.7 mmHg PV Peak Velocity 123.0 cm/s PV Peak Gradient 6.1 mmHg PV Mean Velocity 84.6 cm/s PV Mean Gradient 3.0 mmHg PV Velocity Time Integral 29.9 cm LV E' Lateral Velocity 11.3 cm/s Mitral E to LV E' Lateral Ratio 7.7 LV E' Septal Velocity 5.9 cm/s Mitral E to LV E' Septal Ratio 14.7
--- NOTE | 2016-12-01 21:25 | Cons- Cardiology ---
General Information and HPI Consulting Request Date of Consult: 12/01/16 Requested By: MARY BETH CHAVEZ MD Reason for Consult: TIA Source of Information: patient, family, old records History of Present Illness: Mr. Yang is 71 year old male with past medical history significant for hypertension, hyperlipidemia, migraine, gout, carotid artery disease status post CABG (3 vessels), left hearing loss s/p left ear infection and ENT procedure presented to ED with chief complaint of sudden onset of visual changes, headache , expressive aphasia for one day. Patient reported what he was with his family watching TV at around 1:30 PM when he started to have sudden onset of "funny/pressure sensation" headache-like pain , expressive aphasia (couldn't express himself with right words) and visual changes (visual field black spots). Patient took aspirin and multivitamin pill and went to sleep for 1 hour, after he woke up the speech difficulty resolved, visual changes and headache continue to present. His at bedside reported that after the nap she and her daughter had a conversation with him and he couldn't comprehend appropriately and they decided to bring him to ED for evaluation. Review of systems negative for weakness, numbness, fatigue, palpitation, chest pain, shortness of breath, sweating, nausea or vomiting. Patient reported similar episode one year ago when he was working outside in warm weather, he developed expressive aphasia similar to today's symptom and was attributed to dehydration. At that time patient took a shower and went to sleep for 1 hour, after the nap symptoms resolved and didn't seek any medical attention at that time. Allergies/Medications Allergies: Coded Allergies: atorvastatin (From LIPITOR) (Severe, ELEVAVTED LFTS 12/01/16) rosuvastatin (From CRESTOR) (Intermediate, MUSCLE ACHES 12/01/16) Home Med List: Aspirin (Aspirin*) 81 MG TAB.CHEW 81 MG PO DAILY heart health Atenolol 25 MG TABLET 1 TAB PO DAILY HTN (Reported) Atorvastatin Calcium (Lipitor) 20 MG TABLET 1 TAB PO DAILY stroke prevention Clopidogrel Bisulfate (Plavix) 75 MG TABLET 75 MG PO DAILY stroke Indomethacin 50 MG CAPSULE 50 MG PO BIDP PRN GOUT PAIN (Reported) Lisinopril 5 MG TABLET 1 TAB PO QAM HTN (Reported) Pantoprazole Sodium 40 MG TABLET.DR 1 TAB PO QAM GERD (Reported) Current Medications: Current Medications Sig/Aura Start time Last Medication Dose Route Stop Time Status Admin Acetaminophen 650 MG Q6P PRN 12/01 0215 DCD PO Aspirin 81 MG DAILY 12/01 1239 DCD 12/01 PO 1315 Atenolol 25 MG DAILY 12/01 1000 DCD 12/01 PO 0953 Atenolol 25 MG ONCE ONE 12/01 0045 CAN PO 12/01 0046 Atorvastatin Calcium 40 MG 1700 12/01 1700 DC PO Atorvastatin Calcium 80 MG 1700 12/01 1700 DC PO Atorvastatin Calcium 40 MG 1700 12/01 1700 DCD 12/01 PO 1614 Atorvastatin Calcium 40 MG 1700 11/30 2230 DC 11/30 PO 2315 Clopidogrel Bisulfate 75 MG DAILY 12/01 1000 DCD 12/01 PO 0953 Clopidogrel Bisulfate 75 MG ONCE ONE 11/30 2230 DC 11/30 PO 11/30 2231 2315 Enoxaparin Sodium 40 MG DAILY 12/01 1000 DCD 12/01 SC 0951 Oxycodone/ 2 TAB Q12P PRN 12/01 0215 DCD 12/01 Acetaminophen PO 1142 Patient Medication 1 ED .STK-MED ONE 12/01 1418 HI Teaching ED 12/01 1419 Prednisone 5 MG QAM 12/01 1000 DCD 12/01 PO 0952 Simvastatin 80 MG 1700 12/01 1700 CAN PO Past History Travel History Traveled to [place] past 21 day No Medical History Blood Transfusion Hx: No Neurological: NONE EENT: cataracts, LEFT MASTOIDECTOMY AND RECONSTRUCTION Cardiovascular: hypertension, hyperlipidemia, TRIPLE BYPASS Respiratory: bronchitis Gastrointestinal: HERNIAL SX Hepatic: NONE Renal: NONE Musculoskeletal: gout, R KNEE REPLACEMENT NECK SPINAL PLATE B/L SHOULDER SURGERY B/L CARPAL TUNNEL SURGERY LEFT ULNAR NERVE REPAIR B/L FEET "GRINDING BONES OUT " SURGERY LEFT KNEE SURGERY X1 PYNOIDAL CYST X2 ARTHRITIS Psychiatric: NONE Endocrine: NONE Blood Disorders: NONE Cancer(s): NONE TRANSPORT ANALYST/Reproductive: NONE Surgical History Surgical History: CABG Psychosocial History Where Do You Live? Home Who Do You Live With? spouse Smoking Status: Former Smoker ETOH Use: occasional use Illicit Drug Use: denies illicit drug use Exam & Diagnostic Data Vital Signs and I&O Vital Signs Date Time Temp Pulse Resp B/P B/P Pulse O2 O2 Flow FiO2 Mean Ox Delivery Rate 12/01 1702 97.9 54 18 138/60 96 12/01 0953 144/70 12/01 0836 98.7 64 18 144/72 96 Room Air 12/01 0100 55 158/76 12/01 0024 97.8 55 20 182/76 96 Room Air 11/30 2301 166/78 11/30 2146 56 16 167/66 97 Room Air 11/30 2125 97.8 58 16 180/80 97 Room Air Intake & Output 12/01 1600 12/01 0800 12/01 0000 11/30 1600 11/30 0800 11/30 0000 Intake Total 538 341 5666 Output Total 450 1525 Balance 400 -100 -525 Intake, IV 0 1000 Intake, Oral 400 350 Number 0 Bowel Movements Output, Urine 450 1525 Patient 215 lb Weight Weight Reported by Patient Measurement Method Labs/Abdias Results: Laboratory Tests 12/01 12/01 0635 0000 Chemistry Sodium (137 - 145 mmol/L) 142 Potassium (3.5 - 5.1 mmol/L) 4.4 Chloride (98 - 107 mmol/L) 104 Carbon Dioxide (22 - 30 mmol/L) 27 Anion Gap (5 - 16) 10 BUN (9 - 20 mg/dL) 13 Creatinine (0.7 - 1.2 mg/dL) 1.0 Estimated GFR (>60 ml/min) > 60 BUN/Creatinine Ratio (7 - 25 %) 13.0 Troponin I (<0.11 ng/ml) 0.01 Triglycerides (<150 mg/dL) 182 H Cholesterol (< 200 MG/DL) 198 LDL Cholesterol, Calc (65 - 129 mg/dL) 109 HDL Cholesterol (40 - 60 mg/dL) 53 Cholesterol/HDL Ratio (0.00 - 4.88 %) 4 Hematology CBC w Diff NO MAN DIFF REQ WBC (4.8 - 10.8 /CUMM) 8.6 RBC (4.70 - 6.10 /CUMM) 4.46 L Hgb (14.0 - 18.0 G/DL) 14.0 Hct (42 - 52 %) 42.4 MCV (80.0 - 94.0 FL) 95.1 H MCH (27.0 - 31.0 PG) 31.5 H RDW (11.5 - 14.5 %) 13.4 Plt Count (130 - 400 /CUMM) 187 MPV (7.4 - 10.4 FL) 9.2 Gran % (42.2 - 75.2 %) 58.6 Lymphocytes % (20.5 - 51.1 %) 26.2 Monocytes % (1.7 - 9.3 %) 9.1 Eosinophils % (0 - 5 %) 5.4 H Basophils % (0.0 - 2.0 %) 0.7 Absolute Granulocytes (1.4 - 6.5 /CUMM) 5.1 Absolute Lymphocytes (1.2 - 3.4 /CUMM) 2.3 Absolute Monocytes (0.10 - 0.60 /CUMM) 0.8 H Absolute Eosinophils (0.0 - 0.7 /CUMM) 0.5 Absolute Basophils (0.0 - 0.2 /CUMM) 0.1 PUBS MCHC (33.0 - 37.0 G/DL) 33.1 11/30 11/30 1835 1725 Chemistry Sodium (137 - 145 mmol/L) 135 L Potassium (3.5 - 5.1 mmol/L) 4.6 Chloride (98 - 107 mmol/L) 98 Carbon Dioxide (22 - 30 mmol/L) 23 Anion Gap (5 - 16) 13 BUN (9 - 20 mg/dL) 18 Creatinine (0.7 - 1.2 mg/dL) 1.1 Estimated GFR (>60 ml/min) > 60 BUN/Creatinine Ratio (7 - 25 %) 16.4 Glucose (65 - 99 mg/dL) 124 H Calcium (8.4 - 10.2 mg/dL) 9.9 Total Bilirubin (0.2 - 1.3 mg/dL) 0.8 AST (17 - 59 U/L) 41 ALT (21 - 72 U/L) 50 Alkaline Phosphatase (< 127 U/L) 64 Troponin I (<0.11 ng/ml) < 0.01 Total Protein (6.3 - 8.2 g/dL) 7.5 Albumin (3.5 - 5.0 g/dL) 4.5 Globulin (1.9 - 4.2 gm/dL) 3.0 Albumin/Globulin Ratio (1.1 - 2.2 %) 1.5 TSH (0.270 - 4.200 uIU/mL) 0.965 Hematology CBC w Diff NO MAN DIFF REQ WBC (4.8 - 10.8 /CUMM) 9.6 RBC (4.70 - 6.10 /CUMM) 4.85 Hgb (14.0 - 18.0 G/DL) 15.2 Hct (42 - 52 %) 45.8 MCV (80.0 - 94.0 FL) 94.5 H MCH (27.0 - 31.0 PG) 31.3 H RDW (11.5 - 14.5 %) 12.8 Plt Count (130 - 400 /CUMM) 212 MPV (7.4 - 10.4 FL) 8.6 Gran % (42.2 - 75.2 %) 79.0 H Lymphocytes % (20.5 - 51.1 %) 11.8 L Monocytes % (1.7 - 9.3 %) 5.9 Eosinophils % (0 - 5 %) 2.8 Basophils % (0.0 - 2.0 %) 0.5 Absolute Granulocytes (1.4 - 6.5 /CUMM) 7.6 H Absolute Lymphocytes (1.2 - 3.4 /CUMM) 1.1 L Absolute Monocytes (0.10 - 0.60 /CUMM) 0.6 Absolute Eosinophils (0.0 - 0.7 /CUMM) 0.3 Absolute Basophils (0.0 - 0.2 /CUMM) 0 PUBS MCHC (33.0 - 37.0 G/DL) 33.1 ESR Westergren (0 - 10 MM) 9 Toxicology Urine Opiates Screen (>2000 NG/ML) 126.00 Methadone Screen (>300 NG/ML) < 40 Barbiturate Screen (>200 NG/ML) < 60 Ur Phencyclidine Scrn (>25 NG/ML) < 6.00 Amphetamines Screen (>1000 NG/ML) < 100 U Benzodiazepines Scrn (>200 NG/ML) < 85 Urine Cocaine Screen (>300 NG/ML) < 50 Urine Cannabis Screen (>50 NG/ML) < 5.00 Serum Alcohol (<10 MG/DL) < 10.0 Urines Urine Color (YEL,AMB,STR) YEL Urine Clarity (CLEAR) CLEAR Urine pH (5.0 - 8.0) 7.0 Ur Specific [place] (1.001 - 1.035) <= 1.005 Urine Protein (NEG,<30 MG/DL) NEG Urine Ketones (NEG) NEG Urine Nitrite (NEG) NEG Urine Bilirubin (NEG) NEG Urine Urobilinogen (0.1 - 1.0 EU/dl) 0.2 Ur Leukocyte Esterase (NEG) NEG Ur Microscopic EXAM NOT REQUIRED Urine Hemoglobin (NEG) NEG Urine Glucose (N MG/DL) NEG Assessment/Plan Assessment/Plan Assessment: 1. TIA 2. HTN 3. HLD 4. History of CAD 5. History of EtOH use Recommendations: - Extended discussion with the patient and his . - COntinue current medication - Increase ASA to 325 daily - Await echocardiogram - MRI pending - Followup with me as outpatient - Outpatient Event monitor and KRISHNA to be scheduled. Consult Acknowledgment - Thank you for your consult request.
--- NOTE | 2016-12-01 22:35 | Cons- Neurology ---
General Information and HPI Consulting Request Date of Consult: 12/01/16 Requested By: MARY BETH CHAVEZ MD Reason for Consult: TIA Source of Information: patient, family, old records Exam Limitations: no limitations History of Present Illness: 71 year old right handed man with migraine, HTN, CAD s/p CABG, hyperlipidemia, who was in his usual state of health until yesterday, when in the evening after dinner he noted development of inability to articulate his thoughts. He knew what he wanted to say but it would not come out the way he intented. He continued to struggle to both express himself and comprehend what others were saying. He tried to take a few aspirins and take a shower slowly noting the return of his speech. He then developed visual obscurations of colorful spots. He also notes that he had a severe headache. His family brought him to the ER, where his aphasia had subsided. His BP was very high. He was therefore admitted for suspected TIAs. He admits to longstanding pain in the feet, tingling, and imbalance. However, he denies any diabetes. Allergies/Medications Allergies: Coded Allergies: atorvastatin (From LIPITOR) (Severe, ELEVAVTED LFTS 12/01/16) rosuvastatin (From CRESTOR) (Intermediate, MUSCLE ACHES 12/01/16) Home Med List: Aspirin (Aspirin*) 81 MG TAB.CHEW 81 MG PO DAILY heart health Atenolol 25 MG TABLET 1 TAB PO DAILY HTN (Reported) Atorvastatin Calcium (Lipitor) 20 MG TABLET 1 TAB PO DAILY stroke prevention Clopidogrel Bisulfate (Plavix) 75 MG TABLET 75 MG PO DAILY stroke Indomethacin 50 MG CAPSULE 50 MG PO BIDP PRN GOUT PAIN (Reported) Lisinopril 5 MG TABLET 1 TAB PO QAM HTN (Reported) Pantoprazole Sodium 40 MG TABLET.DR 1 TAB PO QAM GERD (Reported) Current Medications: Current Medications Sig/Aura Start time Last Medication Dose Route Stop Time Status Admin Acetaminophen 650 MG Q6P PRN 12/01 0215 DCD PO Aspirin 81 MG DAILY 12/01 1239 DCD 12/01 PO 1315 Atenolol 25 MG DAILY 12/01 1000 DCD 12/01 PO 0953 Atenolol 25 MG ONCE ONE 12/01 0045 CAN PO 12/01 0046 Atorvastatin Calcium 40 MG 1700 12/01 1700 DC PO Atorvastatin Calcium 80 MG 1700 12/01 1700 DC PO Atorvastatin Calcium 40 MG 1700 12/01 1700 DCD 12/01 PO 1614 Atorvastatin Calcium 40 MG 1700 11/30 2230 DC 11/30 PO 2315 Clopidogrel Bisulfate 75 MG DAILY 12/01 1000 DCD 12/01 PO 0953 Clopidogrel Bisulfate 75 MG ONCE ONE 11/30 2230 DC 11/30 PO 11/30 2231 2315 Enoxaparin Sodium 40 MG DAILY 12/01 1000 DCD 12/01 SC 0951 Oxycodone/ 2 TAB Q12P PRN 12/01 0215 DCD 12/01 Acetaminophen PO 1142 Patient Medication 1 ED .STK-MED ONE 12/01 1418 DC Teaching ED 12/01 1419 Prednisone 5 MG QAM 12/01 1000 DCD 12/01 PO 0952 Simvastatin 80 MG 1700 12/01 1700 CAN PO Review of Systems Review of Systems: As perh HPI. Otherwise negative to the ten point complete review of system. Past History Travel History Traveled to [place] past 21 day No Medical History Blood Transfusion Hx: No Neurological: NONE EENT: cataracts, LEFT MASTOIDECTOMY AND RECONSTRUCTION Cardiovascular: hypertension, hyperlipidemia, TRIPLE BYPASS Respiratory: bronchitis Gastrointestinal: HERNIAL SX Hepatic: NONE Renal: NONE Musculoskeletal: gout, R KNEE REPLACEMENT NECK SPINAL PLATE B/L SHOULDER SURGERY B/L CARPAL TUNNEL SURGERY LEFT ULNAR NERVE REPAIR B/L FEET "GRINDING BONES OUT " SURGERY LEFT KNEE SURGERY X1 PYNOIDAL CYST X2 ARTHRITIS Psychiatric: NONE Endocrine: NONE Blood Disorders: NONE Cancer(s): NONE WELDER METAL FAB/Reproductive: NONE Surgical History Surgical History: CABG Psychosocial History Where Do You Live? Home Who Do You Live With? spouse Smoking Status: Former Smoker ETOH Use: occasional use Illicit Drug Use: denies illicit drug use Exam & Diagnostic Data Vital Signs and I&O Vital Signs Date Time Temp Pulse Resp B/P B/P Pulse O2 O2 Flow FiO2 Mean Ox Delivery Rate 12/01 1702 97.9 54 18 138/60 96 12/01 0953 144/70 12/01 0836 98.7 64 18 144/72 96 Room Air 12/01 0100 55 158/76 12/01 0024 97.8 55 20 182/76 96 Room Air 11/30 2301 166/78 Intake & Output 12/01 1600 12/01 0800 12/01 0000 Intake Total 530 010 1259 Output Total 450 1525 Balance 400 -100 -525 Intake, IV 0 1000 Intake, Oral 400 350 Number 0 Bowel Movements Output, Urine 450 1525 Patient 215 lb Weight Weight Reported by Patient Measurement Method Physical Exam: Alert and oriented x 3. Short term memory intact. Fluent and comprehends. S1 and S2 are normal. RRR. EOMI, SONAM, no nystagmus, no eyelid ptosis, face is symmetric, V1-V3 sensation is equal on both side, hearing normal, TPZ and SCM strong, tongue midline, VF intact. Strength is intact throughout the distribution. Some loss of touch sensation in feet. Positive Romberg. FNF normal bilaterally. Gait stable. Last 48 Hours of Lab Results: Laboratory Tests 12/01 12/01 0635 0000 Chemistry Sodium (137 - 145 mmol/L) 142 Potassium (3.5 - 5.1 mmol/L) 4.4 Chloride (98 - 107 mmol/L) 104 Carbon Dioxide (22 - 30 mmol/L) 27 Anion Gap (5 - 16) 10 BUN (9 - 20 mg/dL) 13 Creatinine (0.7 - 1.2 mg/dL) 1.0 Estimated GFR (>60 ml/min) > 60 BUN/Creatinine Ratio (7 - 25 %) 13.0 Troponin I (<0.11 ng/ml) 0.01 Triglycerides (<150 mg/dL) 182 H Cholesterol (< 200 MG/DL) 198 LDL Cholesterol, Calc (65 - 129 mg/dL) 109 HDL Cholesterol (40 - 60 mg/dL) 53 Cholesterol/HDL Ratio (0.00 - 4.88 %) 4 Hematology CBC w Diff NO MAN DIFF REQ WBC (4.8 - 10.8 /CUMM) 8.6 RBC (4.70 - 6.10 /CUMM) 4.46 L Hgb (14.0 - 18.0 G/DL) 14.0 Hct (42 - 52 %) 42.4 MCV (80.0 - 94.0 FL) 95.1 H MCH (27.0 - 31.0 PG) 31.5 H RDW (11.5 - 14.5 %) 13.4 Plt Count (130 - 400 /CUMM) 187 MPV (7.4 - 10.4 FL) 9.2 Gran % (42.2 - 75.2 %) 58.6 Lymphocytes % (20.5 - 51.1 %) 26.2 Monocytes % (1.7 - 9.3 %) 9.1 Eosinophils % (0 - 5 %) 5.4 H Basophils % (0.0 - 2.0 %) 0.7 Absolute Granulocytes (1.4 - 6.5 /CUMM) 5.1 Absolute Lymphocytes (1.2 - 3.4 /CUMM) 2.3 Absolute Monocytes (0.10 - 0.60 /CUMM) 0.8 H Absolute Eosinophils (0.0 - 0.7 /CUMM) 0.5 Absolute Basophils (0.0 - 0.2 /CUMM) 0.1 PUBS MCHC (33.0 - 37.0 G/DL) 33.1 11/30 11/30 1835 1725 Chemistry Sodium (137 - 145 mmol/L) 135 L Potassium (3.5 - 5.1 mmol/L) 4.6 Chloride (98 - 107 mmol/L) 98 Carbon Dioxide (22 - 30 mmol/L) 23 Anion Gap (5 - 16) 13 BUN (9 - 20 mg/dL) 18 Creatinine (0.7 - 1.2 mg/dL) 1.1 Estimated GFR (>60 ml/min) > 60 BUN/Creatinine Ratio (7 - 25 %) 16.4 Glucose (65 - 99 mg/dL) 124 H Calcium (8.4 - 10.2 mg/dL) 9.9 Total Bilirubin (0.2 - 1.3 mg/dL) 0.8 AST (17 - 59 U/L) 41 ALT (21 - 72 U/L) 50 Alkaline Phosphatase (< 127 U/L) 64 Troponin I (<0.11 ng/ml) < 0.01 Total Protein (6.3 - 8.2 g/dL) 7.5 Albumin (3.5 - 5.0 g/dL) 4.5 Globulin (1.9 - 4.2 gm/dL) 3.0 Albumin/Globulin Ratio (1.1 - 2.2 %) 1.5 TSH (0.270 - 4.200 uIU/mL) 0.965 Hematology CBC w Diff NO MAN DIFF REQ WBC (4.8 - 10.8 /CUMM) 9.6 RBC (4.70 - 6.10 /CUMM) 4.85 Hgb (14.0 - 18.0 G/DL) 15.2 Hct (42 - 52 %) 45.8 MCV (80.0 - 94.0 FL) 94.5 H MCH (27.0 - 31.0 PG) 31.3 H RDW (11.5 - 14.5 %) 12.8 Plt Count (130 - 400 /CUMM) 212 MPV (7.4 - 10.4 FL) 8.6 Gran % (42.2 - 75.2 %) 79.0 H Lymphocytes % (20.5 - 51.1 %) 11.8 L Monocytes % (1.7 - 9.3 %) 5.9 Eosinophils % (0 - 5 %) 2.8 Basophils % (0.0 - 2.0 %) 0.5 Absolute Granulocytes (1.4 - 6.5 /CUMM) 7.6 H Absolute Lymphocytes (1.2 - 3.4 /CUMM) 1.1 L Absolute Monocytes (0.10 - 0.60 /CUMM) 0.6 Absolute Eosinophils (0.0 - 0.7 /CUMM) 0.3 Absolute Basophils (0.0 - 0.2 /CUMM) 0 PUBS MCHC (33.0 - 37.0 G/DL) 33.1 ESR Westergren (0 - 10 MM) 9 Toxicology Urine Opiates Screen (>2000 NG/ML) 126.00 Methadone Screen (>300 NG/ML) < 40 Barbiturate Screen (>200 NG/ML) < 60 Ur Phencyclidine Scrn (>25 NG/ML) < 6.00 Amphetamines Screen (>1000 NG/ML) < 100 U Benzodiazepines Scrn (>200 NG/ML) < 85 Urine Cocaine Screen (>300 NG/ML) < 50 Urine Cannabis Screen (>50 NG/ML) < 5.00 Serum Alcohol (<10 MG/DL) < 10.0 Urines Urine Color (YEL,AMB,STR) YEL Urine Clarity (CLEAR) CLEAR Urine pH (5.0 - 8.0) 7.0 Ur Specific [place] (1.001 - 1.035) <= 1.005 Urine Protein (NEG,<30 MG/DL) NEG Urine Ketones (NEG) NEG Urine Nitrite (NEG) NEG Urine Bilirubin (NEG) NEG Urine Urobilinogen (0.1 - 1.0 EU/dl) 0.2 Ur Leukocyte Esterase (NEG) NEG Ur Microscopic EXAM NOT REQUIRED Urine Hemoglobin (NEG) NEG Urine Glucose (N MG/DL) NEG Imaging/Other Studies: MRI brain: IMPRESSION: - No acute intracranial findings. No acute infarcts. - Mild to moderate chronic microangiopathy. Chronic lacunar infarct within the right caudate. Assessment/Plan Assessment: 71 year old man presenting with a TIA vs migraine with aura. He is already on an aspirin and BP medications, however he has been having trouble with statins that have caused him myalgias. Recommendations: 1. Would agree with dual anti-platelet medications. 2. Should try a statin again and if does not tolerate could resort to 2g of fish oil bid. 3. Aggressive BP management. 4. Should be reassessed for diabetes and evaluated for his idiopathic polyneuropathy. 5. If recurs should get cardiac event monitor. Consult Acknowledgment - Thank you for your consult request.
== END 2016-12-01 18:15 ==
LOC: ERH 17:06 → ERHI 19:40 → 1NO 19:40 → ENRESERV 21:43 → 1NO 23:27
PROVIDERS: Emergency Medicine; Student in an Organized Health Care Education/Training Program; ADMIT Student in an Organized Health Care Education/Training Program
DX: G45.9 Transient cerebral ischemic attack, unspecified (principal); G43.909 Migraine, unspecified, not intractable, without status migrainosus; I10 Essential (primary) hypertension; I25.10 Atherosclerotic heart disease of native coronary artery without angina pectoris; Z95.1 Presence of aortocoronary bypass graft; E78.5 Hyperlipidemia, unspecified
CPT/HCPCS: 6020; 70551; 36415; 80307; 81003; 82436; 92610-GN; 93005; 93010; 93306; 96360; 96372; 97161-GP; 97165-GO; G0378; G0480; G8978-GP; G8979-GP; G8980-GP; G8996-GN; G8997-GN; G8998-GN; J0153; J1650; J3490; J7512

== ENCOUNTER 2017-12-11 11:11 | Emergency (ER) | payer OTHER, MEDICARE ==
[~2017-12-11] VITALS: Ht 167.6 cm; Wt 92.1 kg
[~2017-12-11 11:11] MED LIST changes: +ASPIRIN81 M4 PO; +ATENOLOL25 M1 PO; +INDOMETHACIN50 M1 PO; +LIPITOR20 M2 PO; +LISINOPRIL5 M1 PO; +PANTOPRAZOLE SO40 M1 PO; +PLAVIX75 M1 PO; +PREDNISONE10 M2 PO
--- NOTE | 2017-12-11 11:29 | ED EYE COMPLAINT ---
History of Present Illness General Chief Complaint: Eye Problems Stated Complaint: ?LOSING VISION IN R EYE Source: patient Exam Limitations: no limitations Vital Signs & Intake/Output Vital Signs & Intake/Output Vital Signs Date Time Temp Pulse Resp B/P B/P Pulse O2 O2 Flow FiO2 Mean Ox Delivery Rate 12/11 1358 98.0 56 18 164/66 97 Room Air 12/11 1146 Room Air 12/11 1127 98.1 70 16 162/84 99 Room Air Room Air Allergies Coded Allergies: atorvastatin (From LIPITOR) (Severe, ELEVAVTED LFTS 12/11/17) rosuvastatin (From CRESTOR) (Intermediate, MUSCLE ACHES 12/11/17) Reconcile Medications Aspirin (Aspirin*) 81 MG TAB.CHEW 81 MG PO DAILY heart health Atenolol 25 MG TABLET 1 TAB PO DAILY HTN (Reported) Clopidogrel Bisulfate (Plavix) 75 MG TABLET 75 MG PO DAILY stroke Indomethacin 50 MG CAPSULE 50 MG PO BIDP PRN GOUT PAIN (Reported) Lisinopril 5 MG TABLET 1 TAB PO QAM HTN (Reported) Pantoprazole Sodium 40 MG TABLET.DR 1 TAB PO QAM GERD (Reported) Prednisone 5 MG TABLET 1 TAB PO DAILY STEROID (Reported) Rosuvastatin Calcium (Crestor) 20 MG TABLET 1 TAB PO DAILY CHOLESTEROL ( Reported) Triage Note: PT TO TRIAGE AFTER SEEING SPEACIALIST MONDAY AFTER HAVING R EAR CAUTERIZED. PT WAS GETTING READY THIS MORNING, AND LOST MOST VISION OUT OF RIGHT EYE. PT STATES IT STARTED AT 0900. PT TOOK A 81MG TO "HELP THIN THE BLOOD" 1 YEAR PRIOR HE HAD A TIA, SIMILAR VISION PROBLEMS, INABILITY TO SPEAK, BUT RESOLVED Triage Nurses Notes Reviewed? yes Onset: Abrupt Duration: constant Timing: single episode today Severity: moderate Severity Numbers: 5 HPI: Patient is a 72-year-old male with a past medical history of migraines, hypertension, CAD status post CABG currently on Plavix and aspirin, hyperlipidemia and multiple TIAs who presents emergency room stating that last Monday 3 days ago patient had acute onset of right-sided ear bleeding or he followed up with his ENT doctor, who performs cauterization of the right tympanic membrane for concerns of tympanic membrane laceration currently patient is on eardrops medications no bleeding has recurred Patient states that today he woke up in his normal state of health approximately at 10 AM while sitting in his sofa and is home he had indirect sunlight strike patient to the right eye and since patient has been complaining of acute onset of persistent right-sided blurred vision. Patient took 81 mg of aspirin Patient denies any fever chills headache facial droop visual acuity blackness or curtains, difficulty talking or slurred speech, extremity weakness paresthesia difficulty swallowing or breathing and is otherwise without complaints. Denies any trauma denies any photophobia denies any contact lens wear DENIES FOREIGN body sensation (Parth Madrigal) Past History Travel History Traveled to [place] past 21 day No Medical History Any Pertinent Medical History? see below for history Neurological: TIA EENT: cataracts, LEFT MASTOIDECTOMY AND RECONSTRUCTION Cardiovascular: hypertension, hyperlipidemia, TRIPLE BYPASS Respiratory: bronchitis Gastrointestinal: HERNIAL SX Hepatic: NONE Renal: NONE Musculoskeletal: gout, R KNEE REPLACEMENT NECK SPINAL PLATE B/L SHOULDER SURGERY B/L CARPAL TUNNEL SURGERY LEFT ULNAR NERVE REPAIR B/L FEET "GRINDING BONES OUT " SURGERY LEFT KNEE SURGERY X1 PYNOIDAL CYST X2 ARTHRITIS Psychiatric: NONE Endocrine: NONE Blood Disorders: NONE Cancer(s): NONE PAINTER HELPER SIGN/Reproductive: NONE History of MRSA: No History of VRE: No History of CDIFF: No Surgical History Surgical History: CABG Psychosocial History What is your primary language Serbian Tobacco Use: Quit >30 days ago Daily Tobacco Use Amount/Type: => 5 Cigarettes daily ETOH Use: denies use Illicit Drug Use: denies illicit drug use Family History Hx Contributory? No (Parth Madrigal) Review of Systems Review of Systems Constitutional: Reports: no symptoms. Eyes: Reports: see HPI, blurred vision. Denies: blindness, drainage, decreased acuity , foreign body sensation, inflammation, pain, photophobia, shadows, tunnel vision. Ear: Reports: no symptoms. Nose: Reports: no symptoms. Mouth: Reports: no symptoms. Throat: Reports: no symptoms. Respiratory: Reports: no symptoms. Cardiovascular: Reports: no symptoms. GI: Reports: no symptoms. Genitourinary: Reports: no symptoms. Musculoskeletal: Reports: no symptoms. Skin: Reports: no symptoms. Neurological/Psychological: Reports: no symptoms. Hematologic/Endocrine: Reports: no symptoms. Immunologic/Allergic: Reports: no symptoms. All Other Systems: Reviewed and Negative (Parth Madrigal) Physical Exam General Appearance: no apparent distress, alert, comfortable General Inspection: normal inspection Eyelid: normal inspection Conjunctiva/Sclera: normal inspection Cornea: normal inspection EOM: intact Pupil: normal accommodation, normal pupil, PERRL Anterior Chamber: normal inspection General Inspection: normal inspection Eyelid: normal inspection Conjunctiva/Sclera: normal inspection Cornea: normal inspection EOM: intact Pupil: normal accommodation, normal pupil, PERRL Anterior Chamber: normal inspection Physical Exam Head: atraumatic Nose: normal inspection Neck: normal inspection, supple Cardiovascular/Respiratory: normal breath sounds, normal peripheral pulses, regular rate/rhythm Neurologic/Psych: no motor/sensory deficits, awake, alert, oriented x 3, 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 occlusion, TIA, CVA Plan of Care: Orders Procedure Date/time Status CT HEAD WO IV CONTRAST 12/12 1127 Active Patient upon initial presentation and physical exam findings has minimal suspicion of stroke Stroke scale 0 Gag reflex intact Visual field on exam are normal compared bilaterally BLOOD SUGAR ON ARRIVAL 144 1301- BLURRED VISION IS THE SAME PER PATIENT FLUOROSCEINE staining was performed to right eye unremarkable exam no uptake 20/15 ON LEFT 200/20 ON RIGHT FOR VISION ACUITY Due to history of present illness and exam findings my suspicion a CVA or TIA is extremely low, CT scan was resulted I discussed all results with patient. Patient has established ophthalmology and will follow-up today Discussed disposition plan with Dr. Zepeda who agrees Diagnostic Imaging: Viewed by Me: CT Scan. Radiology Impression: no acute abnormality Comments: PATIENT: CLIFFORD WOO PRESENT AGE: 72 PATIENT ACCOUNT NO: [id number] : 46 LOCATION: [facility] ORDERING PHYSICIAN: Parth PETERS SERVICE DATE: 12/11/17 EXAM TYPE: CAT - CT HEAD WO IV CONTRAST EXAMINATION: CT HEAD WITHOUT CONTRAST CLINICAL INFORMATION: Right eye loss of vision. Aphasia resolved. COMPARISON: Brain MRI 12/01/2016. TECHNIQUE: Contiguous axial imaging was performed from the skull base to vertex without intravenous administration of contrast. DLP: 683 mGy-cm. FINDINGS: There is no intracranial hemorrhage, large infarction, or mass lesion. There is no extra-axial collection. There are chronic lacunar infarcts within the right caudate head and in the bilateral love radiata. There are additional scattered foci of hypoattenuation throughout the bilateral cerebral white matter reflecting mild small vessel ischemic changes. There is mild brain parenchymal volume loss with prominence of ventricles and sulci. The visualized paranasal sinuses are clear. There is partially visualized left-sided canal wall up mastoidectomy with opacification of the mastoidectomy bowl. There are atherosclerotic calcification of the carotid siphons and vertebral arteries. IMPRESSION: - No acute intracranial abnormality. - Chronic lacunar infarcts within the right caudate head and bilateral love radiata. Background mild small vessel ischemic changes. - Postoperative findings related to left canal wall up mastoidectomy with opacification of the mastoidectomy bowl. DICTATED BY: Miguelito Denney MD DATE/TIME DICTATED:12/11/171412 (Parth Madrigal) Departure Departure Disposition: HOME OR SELF CARE Condition: Stable Clinical Impression Primary Impression: Blurred vision, right eye Referrals: Lisa MEJIA,Uvaldo Healy (PCP/Family) Michael MEJIA,Severiano Mullen Additional Instructions: As discussed if symptoms TODAY FOLLOW UP with front desk admin Dr. Rodriguez. If symptoms worsen or if he develop a new concerning symptom return to emergency ROOM, continue home medications as directed Departure Forms: Customer Survey General Discharge Information (Parth Madrigal) PA/PALEONTOLOGICAL HELPER Co-Sign Statement Statement: ED Attending supervision documentation- [] I saw and evaluated the patient. I have also reviewed all the pertinent lab results and diagnostic results. I agree with the findings and the plan of care as documented in the PA's/PALEONTOLOGICAL HELPER's documentation. [X] I have reviewed the ED Record and agree with the PA's/PALEONTOLOGICAL HELPER's documentation. [] Additions or exceptions (if any) to the PAs/PALEONTOLOGICAL HELPER's note and plan are summarized below: [] (Marciano Zepeda DO)
[2017-12-11] MEDS ORDERED: PREDNISONE5 M1 PO (12:00)
[2017-12-11] MEDS ORDERED: CRESTOR20 M2 PO (12:01)
[2017-12-11 13:58] VITALS: BP 164/66
--- NOTE | 2017-12-11 14:24 | CT SCAN REPORT ---
EXAMINATION: CT HEAD WITHOUT CONTRAST CLINICAL INFORMATION: Right eye loss of vision. Aphasia resolved. COMPARISON: Brain MRI 12/01/2016. TECHNIQUE: Contiguous axial imaging was performed from the skull base to vertex without intravenous administration of contrast. DLP: 683 mGy-cm. FINDINGS: There is no intracranial hemorrhage, large infarction, or mass lesion. There is no extra-axial collection. There are chronic lacunar infarcts within the right caudate head and in the bilateral love radiata. There are additional scattered foci of hypoattenuation throughout the bilateral cerebral white matter reflecting mild small vessel ischemic changes. There is mild brain parenchymal volume loss with prominence of ventricles and sulci. The visualized paranasal sinuses are clear. There is partially visualized left-sided canal wall up mastoidectomy with opacification of the mastoidectomy bowl. There are atherosclerotic calcification of the carotid siphons and vertebral arteries. IMPRESSION: - No acute intracranial abnormality. - Chronic lacunar infarcts within the right caudate head and bilateral love radiata. Background mild small vessel ischemic changes. - Postoperative findings related to left canal wall up mastoidectomy with opacification of the mastoidectomy bowl.
[2018-01-07] MEDS ORDERED: CINNAMON500 M1 PO (17:56)
[2018-01-07] MEDS ORDERED: TART CHERRY CA1 EACH PO (17:56)
== END 2017-12-11 14:52 ==
LOC: ERH 11:11
DX: H53.8 Other visual disturbances (principal)